=== PATIENT | male | born 1965 | race Caucasian/White ===

== ENCOUNTER 2019-07-04 06:18 | Day surgery (SDC) | payer OTHER ==
[~2019-07-04] VITALS: Ht 188 cm; Wt 99.9 kg
[2019-07-04 07:17] VITALS: Ht 188 cm; Wt 99.9 kg
[2019-07-04 07:19] VITALS: BP 116/72; PULSE 60; RESP 18
[2019-07-04] MEDS ORDERED: SOD CHLORIDE 0.45% 1,000 ML IV SCH (07:30)
[2019-07-04] MEDS ORDERED: PROPOFOL 200 MG INJ ONE (07:30)
[2019-07-04] MEDS ORDERED: PROPOFOL 20 ML ONE (07:31)
--- NOTE | 2019-07-04 07:45 | PREAC ---
Date/Time of Note Date/Time of Note DATE: 07/04/19 TIME: 07:43 Anesthesia Eval and Record Evaluation Time Pre-Procedure Interview DATE: 07/04/19 TIME: 07:43 Age 53 Sex male NPO: 8 hrs Preoperative diagnosis atrial tachycardias Planned procedure EYAL Past Medical History Past Medical History: Includes Cardio: PPM/AICD (bradycardia s/p PPM 2015.) Surgery & Anesthesia Issues No known issue Meds Anticoagulation: No Beta Cristal within 24 hr: No Reason Beta Cristal not given: Pt. not on B-Cristal No Active Prescriptions or Reported Meds Current Medications Sodium Chloride 1,000 ml @ 30 mls/hr Q24H IV Last administered on 07/04/19at 07:26; Admin Dose 30 MLS/HR; Start 07/04/19 at 07:30 Meds reviewed: Yes Allergies Coded Allergies: No Known Allergy (Unverified , 07/04/19) Allergies Reviewed: Yes Labs/Studies Labs Reviewed: Reviewed by anesthesiologist Result Diagram: 07/04/19 0650 07/04/19 0650 Laboratory Tests 07/04/19 06:50 test: N/A Studies: ECG (atrial paced), 2D Echo (per notes EF 55%) Pre-procedure Exam Last vitals Vital Signs Date Temp Pulse Resp B/P (MAP) Pulse Ox O2 O2 Flow FiO2 Time Delivery Rate 07/04/19 97.1 60 18 116/72 96 07:19 (87) Airway: Adequate mouth opening, Adequate thyromental dist Mallampati: Mallampati II Teeth: Normal Lung: Normal Heart: Normal ASA Physical Status ASA physical status: 2 Emergency: None Planned Anesthetic General/MAC: MAC, TIVA Planned Pain Management Parenteral pain med Pre-operative Attestations Prior to commencing anesthesia and surgery, the patient was re-evaluated, there was verification of: *The patient's identity *The results of appropriate recent lab work and preoperative vital signs *The above evaluation not changing prior to induction *Anesthetic plan, risk benefits, alternative and complications discussed with patient/family; questions answered; patient/family understands, accepts and wishes to proceed. FELIPE BEDOLLA Jul 04, 2019 07:45
[2019-07-04] MEDS ORDERED: FENTAnyl 50 MCG/ML VIAL ONE (07:49)
[2019-07-04] MEDS ORDERED: FENTAnyl 50 MCG/ML VIAL IV PRN ×3 (08:00)
[2019-07-04] MEDS ORDERED: OXYCODONE/ACETAMINOPHEN (5/325) TAB PO PRN ×2 (08:00)
[2019-07-04] MEDS ORDERED: ONDANSETRON 4 MG INJ IV PRN (08:00)
--- NOTE | 2019-07-04 08:06 | CONS ---
Assessment/Plan Assessment/Plan Hospital Course (Demo Recall) Subjective Patient here for EYAL to further evaluate RA mass seen on TTE. No complaints. Gen: Denies fever, chills CV: Denies chest pain, palpitations, SOB, CLOUD, orthopnea, PND, edema, claudica tion Resp: Denies SOB or cough GI: Denies nausea, vomiting, diarrhea, constipation, abdominal pain Neuro: Denies lightheadedness, dizziness, presyncope/syncope Medications and allergies reviewed Past medical, surgical, family and social history reviewed. Please referred to outpatient clinic note for further details. Objective General: WD/WN, NAD HEENT: NC/AT, PERRLA, dry mucus membranes CV: RRR, grade 1/6 systolic murmur, S1/S2, no S3/S4, no JVD, no carotid bruits Respiratory: CTAB, no W/C/R, non-labored breathing GI: abdomen soft, NT/ND, normoactive bowel sounds Vascular: extremities are warm, 2+ radial/DT/PT pulses bilaterally, no edema Neuro: A/O x3, no focal deficits ASA 2 Mallampati 3 Assessment & Plan 1. Possible right atrial mass seen on TTE, will proceed with TTE to further evaluate. Risk/benefits reviewed with patient and informed consent obtained. Consultation Date/Type/Reason Admit Date/Time Type of Consult Cardiology Date/Time of Note DATE: 07/04/19 TIME: 08:03 Past Medical History Home Meds No Active Prescriptions or Reported Meds Medications Current Medications Sodium Chloride 1,000 ml @ 30 mls/hr Q24H IV Last administered on 07/04/19at 07:26; Admin Dose 30 MLS/HR; Start 07/04/19 at 07:30 Fentanyl (Sublimaze) 25 mcg PACU ORDER PRN IV MILD PAIN 1-3; Start 07/04/19 at 08:00; Stop 07/04/19 at 12:00 Fentanyl (Sublimaze) 50 mcg PACU ORDER PRN IV MOD PAIN 4-6; Start 07/04/19 at 08:00; Stop 07/04/19 at 12:00 Fentanyl (Sublimaze) 75 mcg PACU ORDER PRN IV SEVERE PAIN 7-10; Start 07/04/19 at 08:00; Stop 07/04/19 at 12:00 Oxycodone/ Acetaminophen (Percocet (5/ 325)) 1 tab PACU ORDER PRN PO .PAIN 1-5; Start 07/04/19 at 08:00; Stop 07/04/19 at 12:00 Oxycodone/ Acetaminophen (Percocet (5/ 325)) 2 tab PACU ORDER PRN PO .PAIN 6-10; Start 07/04/19 at 08:00; Stop 07/04/19 at 12:00 Ondansetron HCl (Zofran Inj) 4 mg PACU ORDER PRN IV NAUSEA/VOMITING; Start 07/04/19 at 08:00; Stop 07/04/19 at 12:00 Allergies: Coded Allergies: No Known Allergy (Unverified , 07/04/19) Social History Smoking Status: Never smoker Exam/Review of Systems Vital Signs Vitals Vital Signs Date Temp Pulse Resp B/P (MAP) Pulse Ox O2 O2 Flow FiO2 Time Delivery Rate 07/04/19 97.1 60 18 116/72 96 07:19 (87) Labs Result Diagram: 07/04/19 0650 07/04/19 0650 Results 24hrs Laboratory Tests Test 07/04/19 06:50 White Blood Count 6.2 Red Blood Count 4.43 L Hemoglobin 12.7 L Hematocrit 39.9 L Mean Corpuscular Volume 90.1 Mean Corpuscular Hemoglobin 28.7 L Mean Corpuscular Hemoglobin Concent 31.8 L Red Cell Distribution Width 13.1 Platelet Count 278 Mean Platelet Volume 9.5 Immature Granulocytes % 0.300 Neutrophils % 50.5 Lymphocytes % 33.0 Monocytes % 10.6 Eosinophils % 5.3 Basophils % 0.3 Nucleated Red Blood Cells % 0.0 Immature Granulocytes # 0.020 Neutrophils # 3.1 Lymphocytes # 2.1 Monocytes # 0.7 Eosinophils # 0.3 Basophils # 0.0 Nucleated Red Blood Cells # 0.0 Prothrombin Time 11.3 L Prothrombin Time Ratio 0.9 INR International Normalized Ratio 0.81 Activated Partial Thromboplast Time 30.2 Sodium Level 140 Potassium Level 4.3 Chloride Level 107 Carbon Dioxide Level 25 Anion Gap 8 Blood Urea Nitrogen 17 Creatinine 0.87 Est Glomerular Filtrat Rate mL/min > 60 Glucose Level 104 Calcium Level 9.1 Medications Medications Current Medications Sodium Chloride 1,000 ml @ 30 mls/hr Q24H IV Last administered on 07/04/19at 07:26; Admin Dose 30 MLS/HR; Start 07/04/19 at 07:30 Fentanyl (Sublimaze) 25 mcg PACU ORDER PRN IV MILD PAIN 1-3; Start 07/04/19 at 08:00; Stop 07/04/19 at 12:00 Fentanyl (Sublimaze) 50 mcg PACU ORDER PRN IV MOD PAIN 4-6; Start 07/04/19 at 08:00; Stop 07/04/19 at 12:00 Fentanyl (Sublimaze) 75 mcg PACU ORDER PRN IV SEVERE PAIN 7-10; Start 07/04/19 at 08:00; Stop 07/04/19 at 12:00 Oxycodone/ Acetaminophen (Percocet (5/ 325)) 1 tab PACU ORDER PRN PO .PAIN 1-5; Start 07/04/19 at 08:00; Stop 07/04/19 at 12:00 Oxycodone/ Acetaminophen (Percocet (5/ 325)) 2 tab PACU ORDER PRN PO .PAIN 6-10; Start 07/04/19 at 08:00; Stop 07/04/19 at 12:00 Ondansetron HCl (Zofran Inj) 4 mg PACU ORDER PRN IV NAUSEA/VOMITING; Start 07/04/19 at 08:00; Stop 07/04/19 at 12:00 ANDI MENA DO Jul 04, 2019 08:06
[2019-07-04 08:45] VITALS: BP 113/62; RESP 24
[2019-07-04 08:53] VITALS: BP 113/63; PULSE 68; RESP 29
[2019-07-04 08:58] VITALS: BP 116/52; PULSE 64; RESP 25
[2019-07-04 09:11] VITALS: BP 111/66; PULSE 51; RESP 18
--- NOTE | 2019-07-04 10:14 | PAC ---
Date/Time of Note Date/Time of Note DATE: 07/04/19 TIME: 10:14 Post-Anesthesia Notes Post-Anesthesia Note Last documented vital signs Vital Signs Date Temp Pulse Resp B/P (MAP) Pulse Ox O2 O2 Flow FiO2 Time Delivery Rate 07/04/19 97.0 51 18 111/66 98 09:11 (81) 07/04/19 Room Air 08:58 Activity: WNL Respiratory function: WNL Cardiovascular function: WNL Mental status: Baseline Pain reasonably controlled: Yes Hydration appropriate: Yes Nausea/Vomiting absent: Yes FELIPE BEDOLLA Jul 04, 2019 10:14
--- NOTE | 2019-07-04 13:31 | SP ---
DATE OF PROCEDURE: TRANSESOPHAGEAL ECHOCARDIOGRAM SURVEYOR'S ASSISTANT: Andi Olson DO INDICATION FOR PROCEDURE: Possible right atrial mass seen on transthoracic echocardiogram. DESCRIPTION OF PROCEDURE: After the risks, benefits and alternatives were explained. Informed conse nt was obtained. The patient was brought to the ICU and prepped and draped in a sterile fashion. Th e patient was monitored on monitor technician continuously, respiratory anesthesia was available to andrzej tor the airway. The patient was sedated with propofol. Next, the transesophageal probe was passed i nto the esophagus without any difficulty. Multiple images were obtained. The esophageal probe was r emoved and then the patient was monitored during recovery. Patient tolerated the procedure well with out any complications. TRANSESOPHAGEAL ECHOCARDIOGRAM RESULTS: 1. Normal left ventricular systolic function. Normal LV size and wall thickness. 2. Normal RV size and function, normal left and right atrial sizes. The interatrial septum was visu alized and there was no evidence of interatrial shunt seen with color flow Doppler and a bubble study was negative. There was a lot of artifact from the right atrial lead; however, there was no vegetat ions seen on the right atrial lead. There was a prominent eustachian valve, but no interatrial mass is seen in the right or left atrium. The left atrial appendage was seen and there was no left atrial appendage thrombus. The mitral, tricuspid, aortic and pulmonic valves were well visualized. No leobardo dence of significant stenosis or regurgitation. No pericardial abnormalities or pericardial effusion s. The proximal ascending aorta showed no atherosclerosis. CONCLUSION: Normal appearing right atrium with no interatrial masses. Prominent eustachian valve, n ormal appearing right atrial and ventricular pacemaker leads. Dictated By: ANDI TRAN/HELENA Conf#: [id number] DID#: [id number]
--- NOTE | 2019-07-04 20:17 | RADRPT ---
Vent Rate: 60 bpm RR Interval: 1000 msec DC Interval: 177 msec QRS Duration: 81 msec QT Interval: 414 msec QTC Interval: 414 msec P-R-T Aldrich: [id number] - 66 - 67 degrees Atrial-paced complexes...other complexes also detected Inferior infarct, acute...ST>0.10mV, T upright, II III aVF Electronically Signed By: Yifan James
== END 2019-07-04 09:27 | disposition home or self-care (01) ==
LOC: SDS 06:18
PROVIDERS: ATTEND Nuclear Medicine Nuclear Cardiology
DX: I47.1 Supraventricular tachycardia (principal); R94.39 Abnormal result of other cardiovascular function study; Z95.810 Presence of automatic (implantable) cardiac defibrillator
CPT/HCPCS: 71045; 80048; 85025; 85610; 85730; 93005; 93312; 93325; J3010; Z7610